=== PATIENT | female | born 1995 | race Caucasian/White ===

== ENCOUNTER → 2022-10-30 | Outpatient (CLI) | payer OTHER ==
[2022-10-30 18:05] LABS: BASO # 0.1 10^3/uL (0.0-0.2); BASO % 0.8 % (0.0-1.0); EOS # 0.4 10^3/uL (0.0-0.5); EOS % 3.3 % (0.0-3.0); HEMOGLOBIN 12.2 g/dl (12.0-15.5); LYMPH # 3.3 10^3/uL (1.5-5.0); LYMPH % 27.8 % (24.0-44.0); MEAN CORPUSCULAR HEMOGLOBIN 25.3 pg (27.0-33.0); MEAN CORPUSCULAR HGB CONC 31.3 g/dl (32.0-36.5); MEAN CORPUSCULAR VOLUME 80.7 fl (80.0-96.0); MONO # 0.8 10^3/uL (0.0-0.8); MONO % 6.8 % (2.0-8.0); NEUTROPHILS # 7.3 10^3/uL (1.5-8.5); PLATELET COUNT, AUTOMATED 448 10^3/uL (150-450); RED BLOOD COUNT 4.83 10^6/uL (4.00-5.40)
[2022-10-30 18:33] LABS: THYROID STIMULATING HORMONE 4.492 uIU/ML (0.55-4.78)
[2022-10-30 18:37] LABS: FREE T4 1.11 NG/DL (0.89-1.76)
[2022-10-30 18:38] LABS: ALBUMIN 3.9 G/DL (3.2-5.2); ALKALINE PHOSPHATASE 60 U/L (46-116); ALT/SGPT 12 U/L (7.0-40); AST/SGOT < 8 U/L (<34); BILIRUBIN,TOTAL 0.2 MG/DL (0.3-1.2); BLOOD UREA NITROGEN 17 MG/DL (9-23); CALCIUM LEVEL 8.9 MG/DL (8.5-10.1); CARBON DIOXIDE LEVEL 22 MMOL/L (20-31); CHLORIDE LEVEL 109 MMOL/L (98-107); CREATININE FOR GFR 0.89 MG/DL (0.55-1.30); GLOMERULAR FILTRATION RATE > 60.0 (>60); GLUCOSE, FASTING 84 MG/DL (60-100); POTASSIUM SERUM 4.1 MMOL/L (3.5-5.1); SODIUM LEVEL 141 MMOL/L (136-145); TOTAL PROTEIN 6.9 G/DL (5.7-8.2)
== END ==
LOC: M LAB 16:06
PROVIDERS: ATTEND Student in an Organized Health Care Education/Training Program
DX: G43.009 Migraine without aura, not intractable, without status migrainosus (principal)

== ENCOUNTER 2023-01-20 15:46 | Emergency (ER) | payer OTHER ==
[~2023-01-20] VITALS: Ht 160 cm; Wt 82.3 kg
[2023-01-20 15:49] VITALS: BP 137/93; TEMP 99.2; O2SAT 100
[2023-01-20] MEDS ORDERED: KETOROLAC 60MG 2ML VIAL IM ONE (18:50)
[2023-01-20] MEDS ORDERED: CYCLOBENZAPRINE 10MG TABLET PO ONE (18:50)
[2023-01-20] MEDS ORDERED: CYCL-707 PO (18:57)
== END 2023-01-20 19:09 | disposition home or self-care (01) ==
LOC: M ED 15:46
DX: M26.629 Arthralgia of temporomandibular joint, unspecified side (principal); Z88.0 Allergy status to penicillin
CPT/HCPCS: 96372; 99282; J1885

== ENCOUNTER → 2023-08-29 | Outpatient (REF) | payer OTHER ==
[~2023-08-29] MED LIST: CYCL-707 PO
== END ==
LOC: M SFHCLERA 16:46
PROVIDERS: ATTEND Physician Assistant
DX: Z01.419 Encounter for gynecological examination (general) (routine) without abnormal findings (principal)

== ENCOUNTER → 2024-08-01 | Outpatient (CLI) | payer OTHER ==
[2024-08-01 14:40] LABS: BASO # 0.1 10^3/uL (0.0-0.2); BASO % 0.6 % (0.0-1.0); EOS # 0.3 10^3/uL (0.0-0.5); EOS % 2.1 % (0.0-3.0); HEMATOCRIT 38.4 % (36.0-47.0); HEMOGLOBIN 11.6 g/dl (12.0-15.5); LYMPH # 2.8 10^3/uL (1.5-5.0); LYMPH % 22.4 % (24.0-44.0); MEAN CORPUSCULAR HGB CONC 30.2 g/dl (32.0-36.5); MEAN CORPUSCULAR VOLUME 76.2 fl (80.0-96.0); MONO # 0.8 10^3/uL (0.0-0.8); MONO % 6.5 % (2.0-8.0); NEUTROPHILS # 8.6 10^3/uL (1.5-8.5); NEUTROPHILS % 68.1 % (36.0-66.0); PLATELET COUNT, AUTOMATED 528 10^3/uL (150-450); RED BLOOD COUNT 5.04 10^6/uL (4.00-5.40); WHITE BLOOD COUNT 12.7 10^3/uL (4.0-10.0)
[2024-08-01 15:11] LABS: ALBUMIN 3.5 G/DL (3.2-5.2); BILIRUBIN,TOTAL 0.2 MG/DL (0.3-1.2); CALCIUM LEVEL 8.9 MG/DL (8.5-10.1); CREATININE FOR GFR 0.89 MG/DL (0.55-1.30); POTASSIUM SERUM 4.1 MMOL/L (3.5-5.1); TOTAL PROTEIN 6.8 G/DL (5.7-8.2)
[2024-08-01 15:12] LABS: THYROID STIMULATING HORMONE 3.126 uIU/ML (0.55-4.78)
[2024-08-01 15:13] LABS: FREE T4 1.27 NG/DL (0.89-1.76)
[2024-08-04 16:01] LABS: PERCENT SATURATION 5.7 % (13.2-45.0)
[2024-08-04 16:06] LABS: FERRITIN 3.7 NG/ML (7.3-270.7)
== END ==
LOC: M LAB 14:02
DX: G43.009 Migraine without aura, not intractable, without status migrainosus (principal); R63.5 Abnormal weight gain; D58.2 Other hemoglobinopathies